=== PATIENT | male | born 1930 | race Hispanic/Latino ===

== ENCOUNTER 2018-10-29 23:09 | Inpatient (IN) | payer OTHER ==
[~2018-10-29] VITALS: Ht 165.1 cm; Wt 54.0 kg
[~2018-10-29 23:09] MED LIST: AMLODIPINE; ASPI-1197 PO; GLIP5TAB11 PO; LEVO25TA54 PO; LISI40TA4 PO; METF-446 PO; SIMV20TA6 PO
[2018-10-29 23:28] LABS: BASOPHILS % (AUTO) 0.2 % (0.0-5.0); EOSINOPHILS % (AUTO) 0.2 % (0.0-8.0); HEMATOCRIT 36.1 % (42-54); LYMPHOCYTES % (AUTO) 2.1 % (21.0-51.0); MEAN CORPUSCULAR HEMOGLOBIN 29.7 pg (27.0-33.0); MEAN CORPUSCULAR HGB CONC 31.5 g/dL (32.0-36.0); MEAN CORPUSCULAR VOLUME 94.4 fL (79-99); MONOCYTES % (AUTO) 3.4 % (3.0-13.0); NEUTROPHILS % (AUTO) 94.1 % (40.0-77.0); PLATELET COUNT (AUTO) 214 K/uL (130-400); RED BLOOD CELL COUNT(AUTO) 3.82 MIL/uL (4.50-6.20); RED CELL DISTRIBUTION WIDTH 17.3 % (11.0-15.5); WHITE BLOOD COUNT (AUTO) 7.3 K/uL (4.8-10.8)
[2018-10-29] MEDS ORDERED: LORAZEPAM 2 MG/ML 1 ML VIAL ONE (23:31)
[2018-10-29] MEDS ORDERED: SODIUM CHLORIDE 0.9% 1000ML 1,000 ML IV ONE ×2 (23:33→23:53)
[2018-10-29] MEDS ORDERED: ZOSYN 3.375GM+NS 50ML 50 ML IV ONE (23:33)
[2018-10-29] MEDS ORDERED: SODIUM CHLORIDE 0.9% 500ML 500 ML IV ONE (23:34)
[2018-10-29] MEDS ORDERED: FOSPHENYTOIN SODIUM 500 MG/10ML VIAL IJ ONE (23:36)
[2018-10-29 23:41] LABS: INR 0.94 (0.85-1.15); PARTIAL THROMBOPLASTIN TIME 27.8 SEC (26.3-35.5); PROTHROMBIN TIME 9.9 SEC (9.6-11.6)
[2018-10-29 23:46] LABS: APPEARANCE,URINE CLOUDY (CLEAR); BILIRUBIN,URINE SMALL (NEGATIVE); COLOR,URINE ORANGE (YELLOW); GLUCOSE, URINE (UA) >=1000 mg/dL (NEGATIVE); KETONES,URINE 5 mg/dL (NEGATIVE); LEUKOCYTE ESTERASE ,URINE MODERATE (NEGATIVE); NITRATE,URINE POSITIVE (NEGATIVE); OCCULT BLOOD,URINE LARGE (NEGATIVE); PH,URINE 8.5 (5.0-8.0); PROTEIN,URINE >=300 mg/dL (NEGATIVE)
[2018-10-29 23:50] LABS: ALBUMIN 2.4 g/dL (3.5-5.0); BILIRUBIN,TOTAL 0.5 mg/dL (0.2-1.0); CREATININE 3.7 mg/dL (0.5-1.5); POTASSIUM 4.4 mmol/L (3.5-5.1); TOTAL PROTEIN, SERUM 6.6 g/dL (6.0-8.3); TROPONIN I 0.06 ng/mL (0.00-0.06)
[2018-10-30] VITALS (23 sets, daily range): BP systolic 96–149; BP diastolic 39–89
[2018-10-30] MEDS ORDERED: NOREPINEPHRINE BITARTRATE 1 MG/1 ML ML IV ONE ×5 (00:02→14:14)
[2018-10-30] MEDS ORDERED: SODIUM CHLORIDE 0.9% 250 ML IV ONE ×4 (00:03→14:15)
[2018-10-30 00:06] LABS: BACTERIA,URINE Many /HPF (None Seen); RBC,URINE TNTC /HPF (0-1); WBC,URINE TNTC /HPF (0-1)
[2018-10-30] MEDS ORDERED: SODIUM CHLORIDE 0.9% 100 ML IV ONE (00:24)
[2018-10-30] MEDS ORDERED: INSULIN HUMULIN R 100 UNIT/ML 3ML ONE (00:27)
[2018-10-30 00:35] LABS: ABG BASE EXCESS -9.4 mmol/L (-2.0-3.0); ABG OXYGEN SATURATION 99.2 % (95.0-99.0); ABG PCO2 29 mmHg (35-48)
[2018-10-30] MEDS ORDERED: LEVOFLOXACIN 500 MG/D5W 100 ML 100 ML ONE (00:37)
[2018-10-30] MEDS ORDERED: DEXTROSE 5 %-0.45 % NACL 1,000 ML IV PRN (01:06)
[2018-10-30] MEDS ORDERED: SODIUM CHLORIDE 0.9% 1000ML 1,000 ML IV ONE ×2 (01:06→01:55)
[2018-10-30] MEDS: SODIUM CHLORIDE 0.9% 1000ML 1,000 ML IV SCH ×2 (01:06→06:06)
[2018-10-30] MEDS ORDERED: VANCOMYCIN 1GM+NS 250ML 250 ML IV ONE ×2 (01:15→02:25)
[2018-10-30] MEDS ORDERED: NOREPINEPHRINE 4MG/NS 250ML 250 ML IV SCH (01:15)
[2018-10-30] MEDS ORDERED: LORAZEPAM 2 MG/ML 1 ML VIAL IVP PRN (01:15)
[2018-10-30] MEDS ORDERED: INSULIN REGULAR, HUMAN 3ML 100 UNIT in SODIUM CHLORIDE 0.9% 99 ML IV PRN ×2 (01:15)
[2018-10-30 01:27] LABS: HEMOGLOBIN A1C 7.7 % (4.0-6.0)
[2018-10-30] MEDS ORDERED: SODIUM BICARB 50MEQ 50ML VIAL ONE (01:35)
[2018-10-30] MEDS ORDERED: PHARMACY COMMUNICATION MISC SCH (02:00)
[2018-10-30] MEDS ORDERED: VANCOMYCIN PROTOCOL PER PHARMACY IV SCH (02:00)
[2018-10-30 03:19] LABS: CREATININE 3.1 mg/dL (0.5-1.5); POTASSIUM 3.4 mmol/L (3.5-5.1)
[2018-10-30 03:26] LABS: TROPONIN I 0.08 ng/mL (0.00-0.06)
[2018-10-30 03:44] LABS: ABG BASE EXCESS -5.3 mmol/L (-2.0-3.0); ABG HCO3 18.8 mmol/L (21.0-28.0); ABG OXYGEN SATURATION 98.9 % (95.0-99.0); ABG PCO2 33 mmHg (35-48)
[2018-10-30 04:50] LABS: BASOPHILS % (AUTO) 0.3 % (0.0-5.0); EOSINOPHILS % (AUTO) 0.1 % (0.0-8.0); HEMATOCRIT 30.3 % (42-54); LYMPHOCYTES % (AUTO) 1.5 % (21.0-51.0); MEAN CORPUSCULAR HEMOGLOBIN 29.2 pg (27.0-33.0); MEAN CORPUSCULAR HGB CONC 32.1 g/dL (32.0-36.0); MONOCYTES % (AUTO) 0.5 % (3.0-13.0); NEUTROPHILS % (AUTO) 97.6 % (40.0-77.0); PLATELET COUNT (AUTO) 204 K/uL (130-400); RED BLOOD CELL COUNT(AUTO) 3.33 MIL/uL (4.50-6.20); RED CELL DISTRIBUTION WIDTH 17.2 % (11.0-15.5); WHITE BLOOD COUNT (AUTO) 7.2 K/uL (4.8-10.8)
[2018-10-30] MEDS ORDERED: ZOSYN 3.375GM+NS 50ML 50 ML IV SCH (05:00)
[2018-10-30 05:26] LABS: CREATININE 2.7 mg/dL (0.5-1.5); POTASSIUM 3.1 mmol/L (3.5-5.1)
[2018-10-30] MEDS ORDERED: POTASSIUM CHLORIDE 10MEQ/100ML 100 ML IV ONE ×2 (06:06→07:30)
[2018-10-30] MEDS ORDERED: DEXTROSE 5 %-0.45 % NACL 1,000 ML IV ONE ×2 (06:14→11:07)
[2018-10-30] MEDS ORDERED: FAMOTIDINE/PF 20 MG/2 ML VIAL IV ONE (08:10)
[2018-10-30] MEDS ORDERED: ZOSYN 3.375GM+NS 50ML 50 ML IV ONE (08:46)
[2018-10-30] MEDS: FAMOTIDINE/PF 20 MG/2 ML VIAL IV SCH ×2 (09:00→20:49)
--- NOTE | 2018-10-30 09:20 | NUR ---
CRITICAL LABS REPORTED TO JOSEPHINE MONTANO NP. NEW ORDERS RECEIVED OT BE CARRIED OUT. Addendum: 10/30/18 at 2254 by SHIRLEY SWANSON RN RN TIME REPORTED [id number]
[2018-10-30] MEDS: FOSPHENYTOIN SODIUM 100 MG in SODIUM CHLORIDE 0.9% 50 ML IV SCH ×2 (11:00→18:13)
[2018-10-30] MEDS ORDERED: FOSPHENYTOIN SODIUM 100 MG/2 ML VIAL IV SCH (11:00)
[2018-10-30] MEDS: ZOSYN 3.375GM+NS 50ML 50 ML IV SCH (12:00)
[2018-10-30] MEDS ORDERED: MORPHINE SULFATE 2 MG/ML 1ML SYG IM PRN (14:45)
[2018-10-30] MEDS ORDERED: THIAMINE HCL 100 MG/ML 2ML VIAL ONE (14:47)
[2018-10-30] MEDS ORDERED: SODIUM CHLORIDE 0.9% 50 ML IV ONE (14:47)
[2018-10-30 14:50] LABS: ABG HCO3 20.8 mmol/L (21.0-28.0); ABG OXYGEN SATURATION 97.4 % (95.0-99.0); ABG PCO2 34 mmHg (35-48)
--- NOTE | 2018-10-30 17:00 | NUR ---
ADMIT NOTE received from ED, report given by CARLOS Rae. Opens eyes to sound. Peripheral IVs patent. Montanez catheter to gravity, hematuria present. Family at bedside, updated on plan of care, verbalized understanding. Sinus rhythm in 90s.
[2018-10-30] MEDS: METOCLOPRAMIDE 10 MG/2 ML VIAL IVP SCH ×2 (17:41→23:37)
[2018-10-30] MEDS ORDERED: COMPOUND IV REFRIGERATED 1 EACH IVSOLN MISC PRN (18:00)
--- NOTE | 2018-10-30 18:15 | NUR ---
PICC PICC line nurse in for insertion of line, consent signed, tolerating well.
--- NOTE | 2018-10-30 19:30 | NUR ---
PT RECEIVED IN BED, ALERT TO SELF ONLY. FAMILY IS AT BEDSIDE. INSULIN DRIP DISCONTINUED AT 1900, PT CONT ON 02/22 NS D5W @ 150ML/HR. PICC LINE PLACEMENT COMPLETED, PENDING ORDER FOR USE. BILATERAL HAND MITTENS ON D/T PATIENT AT RISK OF PULLING OUTLINES. F/C NOTED WITH HEMATURIA, DRAINING TO GRAVITY, SECURED TO PATIENT. TELE WITH AFIB. INSTRUCTED FAMILY TO BRING IN HOME MEDICATIONS TO HAVE MD REVIEW.
[2018-10-30 20:47] LABS: POTASSIUM 3.1 mmol/L (3.5-5.1)
[2018-10-30] MEDS ORDERED: FAMOTIDINE/PF 20 MG/2 ML VIAL IV SCH (21:00)
[2018-10-30] MEDS ORDERED: FAMO20TA8 PO (21:38)
[2018-10-30] MEDS ORDERED: PHEN99.5 PO (21:38)
[2018-10-30] MEDS ORDERED: OLAN2.5T29 PO (21:38)
[2018-10-30] MEDS ORDERED: FERR-82 PO (21:38)
[2018-10-30] MEDS ORDERED: METO25TA6 PO (21:38)
--- NOTE | 2018-10-30 21:38 | NUR ---
HOME MEDICATIONS OBTAINED AND READY FOR MD REVIEW.
--- NOTE | 2018-10-30 21:40 | NUR ---
SPOKE WITH JALEESA DOWLING WITH [facility], CRITICAL LABS REPORTED. NEW ORDERS RECEIVED TO BE CARRIED OUT.
[2018-10-30] MEDS: DEXTROSE 5%-WATER 1,000 ML IV SCH (22:15)
[2018-10-30] MEDS ORDERED: DEXTROSE 5%-WATER 1,000 ML IV ONE (22:20)
[2018-10-30] MEDS: POTASSIUM CHLORIDE 10MEQ/100ML 100 ML IV PRN ×2 (22:37→23:36)
--- NOTE | 2018-10-30 22:50 | NUR ---
PICC LINE OKAY TO USE PER DR. VILLANUEVA.
[2018-10-30] MEDS ORDERED: INSULIN HUMULIN R 100 UNIT/ML 3ML SQ SCH (23:15)
[2018-10-31] VITALS (40 sets, daily range): BP systolic 95–154; BP diastolic 44–81
[2018-10-31] MEDS: POTASSIUM CHLORIDE 20 MEQ in DEXTROSE 5%-WATER 1,000 ML IV SCH (00:32)
[2018-10-31] MEDS: ZOSYN 3.375GM+NS 50ML 50 ML IV SCH ×3 (00:32→23:30)
[2018-10-31] MEDS: FOSPHENYTOIN SODIUM 100 MG in SODIUM CHLORIDE 0.9% 50 ML IV SCH ×3 (02:13→18:05)
[2018-10-31 03:39] LABS: BASOPHILS % (AUTO) 0.3 % (0.0-5.0); EOSINOPHILS % (AUTO) 0.4 % (0.0-8.0); HEMATOCRIT 29.7 % (42-54); LYMPHOCYTES % (AUTO) 5.5 % (21.0-51.0); MEAN CORPUSCULAR HEMOGLOBIN 29.8 pg (27.0-33.0); MEAN CORPUSCULAR HGB CONC 32.5 g/dL (32.0-36.0); MEAN CORPUSCULAR VOLUME 91.7 fL (79-99); NEUTROPHILS % (AUTO) 89.8 % (40.0-77.0); PLATELET COUNT (AUTO) 183 K/uL (130-400); RED BLOOD CELL COUNT(AUTO) 3.24 MIL/uL (4.50-6.20); RED CELL DISTRIBUTION WIDTH 17.1 % (11.0-15.5); WHITE BLOOD COUNT (AUTO) 12.1 K/uL (4.8-10.8)
[2018-10-31 04:00] LABS: ALBUMIN 1.7 g/dL (3.5-5.0); BILIRUBIN,TOTAL 0.4 mg/dL (0.2-1.0); CREATININE 1.8 mg/dL (0.5-1.5); MAGNESIUM 1.5 mg/dL (1.80-2.40); PHOSPHORUS 2.1 mg/dL (2.5-4.9); TOTAL PROTEIN, SERUM 5.1 g/dL (6.0-8.3)
[2018-10-31] MEDS ORDERED: POTASSIUM CHLORIDE 20 MEQ ERTAB PO PRN (04:15)
[2018-10-31] MEDS ORDERED: LIDOCAINE HCL-MPF 1% 2ML VIAL IV PRN ×2 (04:15→04:45)
--- NOTE | 2018-10-31 04:23 | NUR ---
CRITICAL LABS NA 163/ CHL 126/ K 3.0 AND MG 1.5 REPORTED TO JOSEPHINE MONTANO INSURANCE OFFICE MANAGER. NEW ORDERS RECEIVED TO BE CARRIED OUT.
[2018-10-31] MEDS ORDERED: MAGNESIUM 2GM PREMIX 50ML 50 ML IV ONE (04:36)
--- NOTE | 2018-10-31 05:11 | NUR ---
CRITICAL LEVEL NA 163 REPORTED TO JALEESA ASHTON, NO CHANGES AT THIS TIME.
[2018-10-31] MEDS: METOCLOPRAMIDE 10 MG/2 ML VIAL IVP SCH ×4 (06:07→23:30)
[2018-10-31] MEDS: INSULIN HUMULIN R 100 UNIT/ML 3ML SQ SCH ×3 (06:10→17:42)
[2018-10-31] MEDS: POTASSIUM CHLORIDE 20MEQ/100ML 100 ML IV PRN ×3 (06:39→18:20)
--- NOTE | 2018-10-31 07:00 | NUR ---
AM NOTE Arousable to sound, oriented to person only. Confused attempts to remove lines, bilateral hand mittens in place. D5W at 100 infusing via PICC line to right arm, dressing clean and dry. Peripheral IVs discontinued catheters intact upon removal. Seizure precautions in place. Head of bed elevated. Side rails up. Spouse at bedside.
[2018-10-31] MEDS: FAMOTIDINE/PF 20 MG/2 ML VIAL IV SCH ×2 (07:40→20:47)
[2018-10-31] MEDS: DEXTROSE 5%-WATER 1,000 ML IV SCH ×2 (07:40→17:41)
[2018-10-31] MEDS ORDERED: ENOXAPARIN SODIUM 30 MG/0.3 ML SQ SCH (09:00)
--- NOTE | 2018-10-31 09:30 | NUR ---
MD VISIT Dr. Clements in to see pt, update given. No new orders received.
[2018-10-31] MEDS ORDERED: VANCOMYCIN 750MG + NS 250 ML IV SCH ×2 (11:00)
--- NOTE | 2018-10-31 11:45 | NUR ---
DYSPHAGIA EVAL COMPLETED. +S/S OF ASPIRATION WITH THIN LIQUIDS. RECOMMEND PUREED, NECTAR-THICK LIQUIDS; PILLS CRUSHED WITH APPLESAUCE. RECOMMENDATIONS: 1.DYSPHAGIA THERAPY 3-5X WEEK TO INCREASE ORAL MOTOR STRENGTH AND PHARYNGEAL SWALLOW: LTG#1: Pt WILL TOLERATE LEAST RESTRICTIVE DIET TO MEET NUTRITION/HYDRATION WITH NO S/S OF ASPIRATION. LTG#2: SKILLED EDUCATION Pt/FAMILY/STAFF STG#1: Pt WILL PARTICIPATE IN LARYNGEAL ELEVATION/EXCURSION EXERCISES WITH 80% ACCURACY. STG#2: Pt WILL PARTICIPATE IN TONGUE BASE RETRACTION EXERCISES WITH 80% ACCURACY. STG#3: Pt WILL PARTICIPATE IN ORAL MOTOR EXERCISES WITH 80% ACCURACY. STG#4: Pt WILL TOLERATE PUREED, NECTAR-THICK LIQUIDS WITH NO OVERT S/S OF ASPIRATION. STG#5: PT WILL TOLERATE THERAPEUTIC TRIALS OF ADVANCED TEXTURE OF MECHANICAL SOFT AND THIN LIQUIDS WITH NO OVERT S/S OF ASPIRATION. STG#6: SKILLED EDUCATION Pt/FAMILY/STAFF. Addendum: 10/31/18 at 1453 by AVA MURGUIA [facility] Amended: Links added.
[2018-10-31 16:46] LABS: CREATININE 1.7 mg/dL (0.5-1.5); POTASSIUM 3.3 mmol/L (3.5-5.1)
--- NOTE | 2018-10-31 19:14 | NUR ---
DC PLAN VISITED WITH PATIENT. PATIENT LIVES WITH SPOUSE. USED TO BE INDEPENDENT. SINCE LAST ADMISSION IN WHICH HE FELL AT HOME HE HAS DECLINED. DEMENTIA HAS PROGRESSED. PATIENT MORE CONFUSED WITH MITTENS AT THIS TIME. PATIENT HAS NO DME AT HOME. LAST TIME WENT TO [facility]. SAID HE LIKED IT THERE. OKAY TO RETURN IF MD RECOMMENDS SAID THAT HE COULD USE SOME MORE THERAPY. Addendum: 10/31/18 at 1916 by APOLONIA CHAVIS RN CM Amended: Links added.
--- NOTE | 2018-10-31 19:15 | NUR ---
[facility] PLAN - HOSPICE SPOKE TO AND TO SON REGARDING [facility]. PATIENT HAS ADVANCED DEMENTIA WITH FAILURE TO THRIVE. MORE AND MORE CONFUSED. UNABLE TO CARE FOR SELF. WANTS HIM TO RETURN HOME. SAID WILL THINK ABOUT IT. Addendum: 10/31/18 at 1917 by APOLONIA CHAVIS RN CM Amended: Links added.
--- NOTE | 2018-10-31 22:30 | NUR ---
MD Visit making pt rounds ,updated with pt condition, new orders received. Will carry out.
[2018-10-31] MEDS: INSULIN GLARGINE 100 UNITS/ML 10 ML VIAL SQ SCH (23:32)
[2018-11-01] VITALS (16 sets, daily range): BP systolic 116–165; BP diastolic 49–99
--- NOTE | 2018-11-01 | NUR ---
Assessment Pt continues to have altered mental status, confusion, and attempts to remove lines, but mittens are in place. AOX2. As per MD orders infusing D5W with 20KCL 20Meq's as order @ 100ml/hr. No seizures, no distress and or shortness of breath noted during numerous visits to patients room. Seizure pads and seizure precautions in place. Head of bed elevated. Side rails up. Spouse at bedside and call light with in reach.
[2018-11-01] MEDS: INSULIN HUMULIN R 100 UNIT/ML 3ML SQ SCH ×4 (00:03→16:10)
[2018-11-01] MEDS ORDERED: DEXTROSE 5%-WATER 1,000 ML IV ONE (00:16)
[2018-11-01] MEDS: POTASSIUM CHLORIDE 20MEQ/100ML 100 ML IV PRN ×3 (00:31→11:58)
[2018-11-01] MEDS: FOSPHENYTOIN SODIUM 100 MG in SODIUM CHLORIDE 0.9% 50 ML IV SCH ×3 (02:41→18:24)
[2018-11-01 04:30] LABS: ALBUMIN 1.8 g/dL (3.5-5.0); BILIRUBIN,TOTAL 0.4 mg/dL (0.2-1.0); CREATININE 1.8 mg/dL (0.5-1.5); MAGNESIUM 1.8 mg/dL (1.80-2.40); PHOSPHORUS 1.9 mg/dL (2.5-4.9); POTASSIUM 3.1 mmol/L (3.5-5.1); THYROID STIMULATING HORMONE 4.26 uIU/mL (0.36-3.74); TOTAL PROTEIN, SERUM 5.3 g/dL (6.0-8.3)
[2018-11-01 04:57] LABS: BASOPHILS % (AUTO) 0.2 % (0.0-5.0); EOSINOPHILS % (AUTO) 1.7 % (0.0-8.0); LYMPHOCYTES % (AUTO) 6.4 % (21.0-51.0); MEAN CORPUSCULAR HEMOGLOBIN 29.9 pg (27.0-33.0); MEAN CORPUSCULAR HGB CONC 32.5 g/dL (32.0-36.0); MEAN CORPUSCULAR VOLUME 91.8 fL (79-99); MONOCYTES % (AUTO) 4.2 % (3.0-13.0); NEUTROPHILS % (AUTO) 87.5 % (40.0-77.0); PLATELET COUNT (AUTO) 198 K/uL (130-400); RED BLOOD CELL COUNT(AUTO) 3.26 MIL/uL (4.50-6.20); RED CELL DISTRIBUTION WIDTH 17.1 % (11.0-15.5); WHITE BLOOD COUNT (AUTO) 9.9 K/uL (4.8-10.8)
[2018-11-01] MEDS: METOCLOPRAMIDE 10 MG/2 ML VIAL IVP SCH ×2 (06:05→11:58)
[2018-11-01] MEDS: INSULIN GLARGINE 100 UNITS/ML 10 ML VIAL SQ SCH ×2 (06:36→21:08)
[2018-11-01] MEDS: FAMOTIDINE/PF 20 MG/2 ML VIAL IV SCH ×2 (08:27→21:06)
[2018-11-01] MEDS: MAGNESIUM 2GM PREMIX 50ML 50 ML IV PRN (08:43)
--- NOTE | 2018-11-01 08:45 | NUR ---
ORAL CARE COMPLETED, LARGE AMOUNT OF DRY SECRETIONS NOTED. REPOSITIONED PT FOR COMFORT, OPENS EYES AT TIMES AND THEN GOES BACK TO SLEEP. WILL HOLD OFF ON FEEDING FOR NOW. INFORMED SPOUSE AT BEDSIDE. VERBALIZED UNDERSTANDING.
--- NOTE | 2018-11-01 11:08 | NUR ---
EDUCATION PROVIDED. Pt SLEEPING AND NOT ABLE TO PARTICIPATE IN THERAPEUTIC P.O. TRIALS AT THIS TIME. PRESENT AT BEDSIDE AT THE TIME OF floor mechanic VISIT. SERVICE TEAM LEADER EDUCATED ON RISKS AND CONSEQUENCES OF ASPIRATION, RECOMMENDATIONS AND HOW TO USE THICKENING AGENT. VERBALIZED UNDERSTANDING AND COMPLIANCE WITH RECOMMENDATIONS. ALL QUESTIONS AND ANSWERED AT THIS TIME. SERVICE TEAM LEADER INSTRUCTED TO ONLY PROVIDE P.O. WHEN Pt WAS ALERT AND FOLLOWING COMMANDS TO PARTICIPATE IN EATING. SHE VERBALIZED AGREEMENT. Addendum: 11/01/18 at 1111 by AVA MURGUIA [facility] Amended: Links added.
[2018-11-01] MEDS: ZOSYN 3.375GM+NS 50ML 50 ML IV SCH (11:58)
--- NOTE | 2018-11-01 12:04 | NUR ---
REMOVED MITTENS AT THIS TIME. FAMILY MEMBERS AT BEDSIDE. WILL CONTINUE TO MONITOR.
[2018-11-01] MEDS: POTASSIUM CHLORIDE 20 MEQ in DEXTROSE 5%-WATER 1,000 ML IV SCH (12:43)
--- NOTE | 2018-11-01 13:15 | NUR ---
DR. PRASAD ROUNDED, UPDATES GIVEN. MED-TELE ORDER RECEIVED.
--- NOTE | 2018-11-01 14:08 | NUR ---
ORDERS FOR PCCU BY DR. PRASAD.
[2018-11-01] MEDS ORDERED: PHARMACY COMMUNICATION MISC SCH (15:15)
[2018-11-01] MEDS ORDERED: RENAL DOSE IV PRN (15:15)
--- NOTE | 2018-11-01 16:00 | NUR ---
NOTED REDNESS TO COCCYX AREA UPON TURNING PT IN BED. APPLIED ALLEVYN FOAM PATCH AND WILL CONTINUE TO MONITOR.
[2018-11-01] MEDS: CEFAZOLIN SODIUM 1 GM VIAL IVP SCH (16:45)
[2018-11-01] MEDS ORDERED: LEVOFLOXACIN 250 MG/D5W 50ML 50 ML IV SCH (17:00)
[2018-11-01] MEDS ORDERED: LORAZEPAM 2 MG/ML 1 ML VIAL IVP PRN (17:15)
[2018-11-01] MEDS: DEXTROSE 5%-WATER 1,000 ML IV SCH (18:24)
[2018-11-02] MEDS: INSULIN HUMULIN R 100 UNIT/ML 3ML SQ SCH ×3 (00:07→13:33)
[2018-11-02] MEDS: DEXTROSE 5%-WATER 1,000 ML IV SCH ×2 (02:30→22:38)
[2018-11-02] MEDS: FOSPHENYTOIN SODIUM 100 MG in SODIUM CHLORIDE 0.9% 50 ML IV SCH ×3 (02:30→22:41)
--- NOTE | 2018-11-02 02:52 | NUR ---
TRANSFER PATIENT TRANSFERRED TO ROOM 231 VIA BED WITH SPOUSE AT BEDSIDE. TRANSFERRED TO TELE BED WITH ASSISTANCE X4. PATIENT REMAINS NON VERBAL. AWAKENS TO TACTILE STIMULI. BREATHING REGULAR AND UNLABORED ON ROOM AIR. KASPER DRAINING. URINE WITH CLOTS. D5W RUNNING TO [facility]. REPORT GIVEN TO CARLOS OROSCO. CARE ENDORSED
[2018-11-02 03:48] LABS: BASOPHILS % (AUTO) 0.6 % (0.0-5.0); EOSINOPHILS % (AUTO) 5.8 % (0.0-8.0); HEMATOCRIT 31.5 % (42-54); LYMPHOCYTES % (AUTO) 8.1 % (21.0-51.0); MEAN CORPUSCULAR HEMOGLOBIN 29.7 pg (27.0-33.0); MEAN CORPUSCULAR HGB CONC 32.6 g/dL (32.0-36.0); MEAN CORPUSCULAR VOLUME 91.2 fL (79-99); MONOCYTES % (AUTO) 5.2 % (3.0-13.0); NEUTROPHILS % (AUTO) 80.3 % (40.0-77.0); PLATELET COUNT (AUTO) 194 K/uL (130-400); RED BLOOD CELL COUNT(AUTO) 3.45 MIL/uL (4.50-6.20); WHITE BLOOD COUNT (AUTO) 9.4 K/uL (4.8-10.8)
[2018-11-02 04:20] LABS: ALBUMIN 1.8 g/dL (3.5-5.0); BILIRUBIN,TOTAL 0.4 mg/dL (0.2-1.0); CREATININE 1.5 mg/dL (0.5-1.5); MAGNESIUM 2.4 mg/dL (1.80-2.40); PHENYTOIN (DILANTIN) 18.1 mcg/mL (10.0-20.0); PHOSPHORUS 2.7 mg/dL (2.5-4.9); THYROID STIMULATING HORMONE 5.14 uIU/mL (0.36-3.74); TOTAL PROTEIN, SERUM 5.2 g/dL (6.0-8.3)
[2018-11-02 04:22] LABS: POTASSIUM 2.9 mmol/L (3.5-5.1)
[2018-11-02] MEDS: POTASSIUM CHLORIDE 20MEQ/100ML 100 ML IV PRN (04:46)
[2018-11-02] MEDS: CEFAZOLIN SODIUM 1 GM VIAL IVP SCH ×3 (04:46→21:36)
[2018-11-02 04:54] VITALS: BP 113/52
[2018-11-02] MEDS ORDERED: DEXTROSE 50%-WATER 50 ML DISP.SYRIN IV ONE (05:42)
[2018-11-02] MEDS ORDERED: DEXTROSE 5 %-0.45 % NACL 1,000 ML IV ONE (05:58)
[2018-11-02] MEDS ORDERED: DEXTROSE 50%-WATER 25 GM/50 ML VIAL IV SCH (06:00)
[2018-11-02] MEDS: DEXTROSE 5 %-0.45 % NACL 1,000 ML IV SCH ×2 (06:07→15:03)
[2018-11-02] MEDS: INSULIN GLARGINE 100 UNITS/ML 10 ML VIAL SQ SCH (07:09)
[2018-11-02 08:03] VITALS: BP 158/67
[2018-11-02] MEDS: ENOXAPARIN SODIUM 30 MG/0.3 ML SQ SCH (09:38)
[2018-11-02] MEDS: FAMOTIDINE/PF 20 MG/2 ML VIAL IV SCH ×2 (09:38→21:37)
[2018-11-02] MEDS: LEVOFLOXACIN 250 MG/D5W 50ML 50 ML IV SCH (10:00)
[2018-11-02 12:02] VITALS: BP_SYST 143; BP_DIAS 68; BP_DIAS 77
--- NOTE | 2018-11-02 12:02 | NUR ---
DC Plan Discussed dcp with PMD. States will need IV ABX for a total of 14 days and PT. Discussed dcp with patient and family at bedside. Patient unable to participate in dc planning. at bedside states patient has been at [facility] in the past and would like for patient to return. signed CONRAD and Choice Letter for [facility]. Referral faxed and Yanet mukherjee/ [facility] Lissette notified. Notified Juan PT, that dcp is to SNF and CM will need PT notes documented. CM to f/u and fax PT notes and [facility]. CD Addendum: 11/02/18 at 1206 by ANA ALTAMIRANO CM Amended: Links added.
--- NOTE | 2018-11-02 12:54 | NUR ---
HOLD Pt SLEEPING AT THIS TIME. NO P.O. PROVIDED AT THIS TIME. PLEATING SUPERVISOR TO FOLLOW UP WITH PT. Addendum: 11/02/18 at 1255 by AVA MURGUIA, SPT ST Amended: Links added.
[2018-11-02] MEDS: NEUTRA-PHOS PACKET 1 EACH PO SCH ×2 (13:39→21:39)
[2018-11-02] MEDS ORDERED: LORAZEPAM 2 MG/ML 1 ML VIAL IVP PRN (15:15)
[2018-11-02 15:30] VITALS: BP 109/81
[2018-11-02] MEDS ORDERED: IPRATROPIUM/ALBUTEROL SULFATE 3 ML SOLUTION IH SCH (18:00)
[2018-11-02] MEDS ORDERED: FUROSEMIDE 10 MG/ML 4ML VIAL IV SCH (19:05)
[2018-11-02 19:40] VITALS: BP 132/84
[2018-11-02] MEDS ORDERED: INSULIN GLARGINE 100 UNITS/ML 10 ML VIAL SQ SCH (21:30)
[2018-11-03] VITALS: BP 129/72
[2018-11-03 03:57] VITALS: BP 159/55
[2018-11-03 04:01] LABS: HEMATOCRIT 32.8 % (42-54); MEAN CORPUSCULAR HEMOGLOBIN 29.6 pg (27.0-33.0); MEAN CORPUSCULAR HGB CONC 32.6 g/dL (32.0-36.0); MEAN CORPUSCULAR VOLUME 90.6 fL (79-99); PLATELET COUNT (AUTO) 243 K/uL (130-400); RED BLOOD CELL COUNT(AUTO) 3.62 MIL/uL (4.50-6.20); RED CELL DISTRIBUTION WIDTH 16.8 % (11.0-15.5); WHITE BLOOD COUNT (AUTO) 10.4 K/uL (4.8-10.8)
[2018-11-03 04:24] LABS: CREATININE 1.3 mg/dL (0.5-1.5); MAGNESIUM 1.3 mg/dL (1.80-2.40); PHOSPHORUS 2.2 mg/dL (2.5-4.9)
[2018-11-03 04:38] LABS: POTASSIUM 2.6 mmol/L (3.5-5.1)
[2018-11-03] MEDS ORDERED: DEXTROSE 50%-WATER 50 ML DISP.SYRIN IV ONE ×2 (04:42→11:30)
[2018-11-03] MEDS: DEXTROSE 50%-WATER 25 GM/50 ML VIAL IV SCH (05:00)
[2018-11-03] MEDS: INSULIN HUMULIN R 100 UNIT/ML 3ML SQ SCH ×4 (05:37→16:30)
[2018-11-03] MEDS: FOSPHENYTOIN SODIUM 100 MG in SODIUM CHLORIDE 0.9% 50 ML IV SCH ×3 (06:25→22:49)
[2018-11-03] MEDS: POTASSIUM CHLORIDE 20MEQ/100ML 100 ML IV PRN ×3 (06:32→22:48)
[2018-11-03 07:51] VITALS: BP 141/76
[2018-11-03] MEDS: CEFAZOLIN SODIUM 1 GM VIAL IVP SCH ×2 (10:28→22:48)
[2018-11-03] MEDS: NEUTRA-PHOS PACKET 1 EACH PO SCH (10:29)
[2018-11-03] MEDS: FAMOTIDINE/PF 20 MG/2 ML VIAL IV SCH ×2 (10:29→22:48)
[2018-11-03] MEDS: MEGESTROL 400 MG/10 ML UDCUP PO SCH (10:29)
[2018-11-03] MEDS: LEVOFLOXACIN 250 MG/D5W 50ML 50 ML IV SCH (10:30)
[2018-11-03] MEDS: ENOXAPARIN SODIUM 30 MG/0.3 ML SQ SCH (10:30)
[2018-11-03 11:00] VITALS: BP 111/58
--- NOTE | 2018-11-03 12:00 | NUR ---
cm note received update from Yanet goodman that pt accepted, updated pt's family and also updated Dr Nunez, and also of pt family questions regarding plan of care, Md will asses pt and make decision regarding transfer. updated primary nurse Alysa.
--- NOTE | 2018-11-03 14:01 | NUR ---
HOLD PT NOT ABLE TO PARTICIPATE IN THERAPEUTIC INTERVENTION SECONDARY TO DECREASED ALERTNESS. RECOMMEND ALTERNATE MEANS OF NUTRITION/HYDRATION AT THIS TIME. ASSISTANT DIRECTOR OF PUBLIC WORKS COORDINATED CARE WITH NURSE YI. ASSISTANT DIRECTOR OF PUBLIC WORKS WILL CONTINUE TO FOLLOW Pt. Addendum: 11/03/18 at 1402 by AVA MURGUIA, SPT ST Amended: Links added.
[2018-11-03] MEDS ORDERED: DEXTROSE 50%-WATER 50 ML DISP.SYRIN IV PRN (15:45)
[2018-11-03] MEDS ORDERED: GLUCAGON 1MG KIT 1 MG ML IM PRN (15:45)
[2018-11-03] MEDS: MAGNESIUM 2GM PREMIX 50ML 50 ML IV PRN (15:55)
[2018-11-03] MEDS: DEXTROSE 5%-WATER 1,000 ML IV SCH (15:56)
[2018-11-03 16:00] VITALS: BP 130/67
[2018-11-03 20:48] VITALS: BP 158/84
[2018-11-04] VITALS (7 sets, daily range): BP systolic 105–158; BP diastolic 54–67
[2018-11-04] MEDS: INSULIN HUMULIN R 100 UNIT/ML 3ML SQ SCH ×5 (01:57→22:49)
[2018-11-04] MEDS: DEXTROSE 5%-WATER 1,000 ML IV SCH ×2 (01:59→13:19)
[2018-11-04 04:19] LABS: HEMATOCRIT 40.5 % (42-54); MEAN CORPUSCULAR HEMOGLOBIN 36.3 pg (27.0-33.0); MEAN CORPUSCULAR HGB CONC 34.8 g/dL (32.0-36.0); MEAN CORPUSCULAR VOLUME 104.5 fL (79-99); PLATELET COUNT (AUTO) 150 K/uL (130-400); RED BLOOD CELL COUNT(AUTO) 3.87 MIL/uL (4.50-6.20); WHITE BLOOD COUNT (AUTO) 5.5 K/uL (4.8-10.8)
[2018-11-04 04:32] LABS: CREATININE 0.7 mg/dL (0.5-1.5); MAGNESIUM 1.8 mg/dL (1.80-2.40); PHOSPHORUS 3.3 mg/dL (2.5-4.9); POTASSIUM 3.7 mmol/L (3.5-5.1)
[2018-11-04 04:37] LABS: BASOPHILS % (MANUAL) 1 % (0-2); EOSINOPHILS % (MANUAL) 1 % (1-6); LYMPHOCYTES % (MANUAL) 28 % (22-44); MAN.DIFF COMMENT-IMPRESSION MANUAL DIFFERENTIAL; MONOCYTES % (MANUAL) 6 % (2-9); SEGMENTED NEUTROPHILS % 64 % (40-70)
[2018-11-04] MEDS: DEXTROSE 50%-WATER 25 GM/50 ML VIAL IV SCH (05:00)
[2018-11-04] MEDS: FOSPHENYTOIN SODIUM 100 MG in SODIUM CHLORIDE 0.9% 50 ML IV SCH ×3 (05:59→20:48)
[2018-11-04] MEDS: FAMOTIDINE/PF 20 MG/2 ML VIAL IV SCH ×2 (07:39→20:47)
[2018-11-04] MEDS: CEFAZOLIN SODIUM 1 GM VIAL IVP SCH ×2 (07:39→20:47)
[2018-11-04] MEDS: MEGESTROL 400 MG/10 ML UDCUP PO SCH (07:40)
[2018-11-04] MEDS: LEVOFLOXACIN 250 MG/D5W 50ML 50 ML IV SCH (07:40)
[2018-11-04] MEDS: ENOXAPARIN SODIUM 30 MG/0.3 ML SQ SCH (07:40)
--- NOTE | 2018-11-04 08:15 | NUR ---
ASSESSMENT PT IS RESTING IN BED, BREATHING PATTERN IS EVEN AND UNLABORED. FAMILY IS AT BEDSIDE. PATIENT RESTING WITH HOB UP AT 35 DEGREES, NO VISIBLE SINGS OF DISTRESS NOTED. FAMILY IS ASSISTING WITH BREAKFAST, NO CHOKING NO GAGGING NOTED AT THIS TIME. BED ALARM ON, CALL LIGHT WITHIN REACH.
--- NOTE | 2018-11-04 13:00 | NUR ---
MD ROUNDS DR ARIZA AND DR KHAN ROUNDED, SAW PATIENT, ORDERS RECEIVED.
[2018-11-04 13:41] LABS: CREATININE 1.4 mg/dL (0.5-1.5); POTASSIUM 3.6 mmol/L (3.5-5.1)
[2018-11-04 13:54] LABS: TROPONIN I 0.05 ng/mL (0.00-0.06)
--- NOTE | 2018-11-04 19:31 | NUR ---
INITIAL ASSESSMENT PATIENT IS RESTING IN BED. ALERT AND ORIENTED TO SELF. IS AT BEDSIDE. NO SIGNS OR COMPLAINTS OF PAIN. NO SIGNS OF DISTRESS. NO SHORTNESS OF BREATH. PATIENT HAS A KASPER THAT IS PATENT AND FREE FLOW DRAINING AT BEDSIDE. CALL LIGHT IS WITHIN REACH. REINFORCED TO TO CALL FOR ANY NEEDS. BED ALARM IS ONE AT THIS TIME.
--- NOTE | 2018-11-05 | NUR ---
ASSESSMENT PATIENT IS RESTING IN BED. CONFUSED BUT AROUSABLE. PATIENTS IS AT BEDSIDE. NO SIGNS OF DISTRESS. NO COMPLAINTS OF PAIN. NO SHORTNESS OF BREATH AT THIS TIME. PATIENT WAS REPOSITIONED. KASPER IN PLACE THAT IS AT BEDSIDE PATENT AND FREEFLOWING. NO QUESTIONS, CONCERNS, OR NEEDS AT THIS TIME.
[2018-11-05 03:00] VITALS: BP 143/60
--- NOTE | 2018-11-05 04:00 | NUR ---
ASSESSMENT PATIENT IS RESTING IN BED. NO SIGNS OF DISTRESS. NO COMPLAINTS OF PAIN. NO SHORTNESS OF BREATH. PATIENTS IS AT BEDSIDE. NO QUESTIONS, CONCERNS, AND NEEDS AT THIS TIME. PATIENTS CALL LIGHT IS WITHIN REACH ALTHOUGH CAN NOT PROPERLY DEMONSTRATE PROPER USE.
[2018-11-05] MEDS: FOSPHENYTOIN SODIUM 100 MG in SODIUM CHLORIDE 0.9% 50 ML IV SCH ×3 (05:43→21:38)
[2018-11-05 05:55] LABS: MEAN CORPUSCULAR HGB CONC 32.6 g/dL (32.0-36.0); MEAN CORPUSCULAR VOLUME 89.1 fL (79-99); PLATELET COUNT (AUTO) 223 K/uL (130-400); RED BLOOD CELL COUNT(AUTO) 3.14 MIL/uL (4.50-6.20); RED CELL DISTRIBUTION WIDTH 16.1 % (11.0-15.5); WHITE BLOOD COUNT (AUTO) 8.2 K/uL (4.8-10.8)
[2018-11-05 06:17] LABS: CREATININE 1.5 mg/dL (0.5-1.5)
[2018-11-05] MEDS: POTASSIUM CHLORIDE 20MEQ/100ML 100 ML IV PRN ×2 (06:51→20:28)
[2018-11-05 07:20] VITALS: BP 125/55
[2018-11-05] MEDS: INSULIN HUMULIN R 100 UNIT/ML 3ML SQ SCH ×4 (07:30→21:15)
[2018-11-05] MEDS: DEXTROSE 50%-WATER 25 GM/50 ML VIAL IV SCH (08:51)
[2018-11-05] MEDS: LEVOFLOXACIN 250 MG/D5W 50ML 50 ML IV SCH (09:59)
[2018-11-05] MEDS: DEXTROSE 5%-WATER 1,000 ML IV SCH (09:59)
[2018-11-05] MEDS: MEGESTROL 400 MG/10 ML UDCUP PO SCH (10:00)
[2018-11-05] MEDS: FAMOTIDINE/PF 20 MG/2 ML VIAL IV SCH ×2 (10:00→20:27)
[2018-11-05] MEDS: ENOXAPARIN SODIUM 30 MG/0.3 ML SQ SCH (10:00)
[2018-11-05] MEDS: CEFAZOLIN SODIUM 1 GM VIAL IVP SCH ×2 (10:00→20:27)
[2018-11-05] MEDS ORDERED: DICYCLOMINE HCL 20 MG TAB PO PRN (11:00)
[2018-11-05] MEDS ORDERED: ONDANSETRON HCL 4 MG/2 ML VIAL IVP PRN (11:00)
[2018-11-05 11:15] VITALS: BP 133/62
[2018-11-05 15:20] VITALS: BP 109/58
[2018-11-05 19:22] VITALS: BP 114/57
[2018-11-05] MEDS: DOCUSATE NA 100MG/10ML UDCUP PO SCH (20:27)
--- NOTE | 2018-11-05 20:30 | NUR ---
MEDS SHIFT ASSESSMENT DONE, PLEASE REFER TO CHART. DUE MEDS ADMINISTERED, TOLERATED WELL. RE-POSITIONED IN BED WITH HOB ELEVATED. KEPT ON NECTAR THICK LIQUIDS. KEPT COMFORTABLE IN BED. FAMILY AT BEDSIDE. WILL MONITOR PT. Addendum: 11/06/18 at 0053 by DARIA THOMAS RN RN Amended: Links added.
--- NOTE | 2018-11-05 23:30 | NUR ---
COUGH PT'S FAMILY CALLS AND CLAIMS THAT PT IS HAVING A LOT OF PHLEGM ON HIS THROAT AND WAS UNABLE TO EXPECTORATE. WENT TO CHECK ON PT AND BREATH SOUNDS ARE CLEAR BUT UNABLE TO CLEAR HIS THROAT. RT CALLED AND ASKED TO RE-ASSESS PT FOR SUCTIONING.
[2018-11-05 23:37] VITALS: BP 130/69
--- NOTE | 2018-11-06 02:00 | NUR ---
ROUNDS PT FAIRLY ASLEEP WITH RESPIRATIONS EVEN AND UNLABORED. NO NOTED DISTRESS. KEPT UNDISTURBED FOR NOW. CALL LIGHT WITHIN REACH. WILL MONITOR PT. FAMILY ASLEEP AT BEDSIDE.
[2018-11-06 03:26] VITALS: BP 133/67
[2018-11-06 04:30] LABS: HEMATOCRIT 27.2 % (42-54); MEAN CORPUSCULAR HEMOGLOBIN 29.4 pg (27.0-33.0); MEAN CORPUSCULAR HGB CONC 32.4 g/dL (32.0-36.0); MEAN CORPUSCULAR VOLUME 90.9 fL (79-99); PLATELET COUNT (AUTO) 244 K/uL (130-400); RED BLOOD CELL COUNT(AUTO) 2.99 MIL/uL (4.50-6.20); RED CELL DISTRIBUTION WIDTH 16.8 % (11.0-15.5); WHITE BLOOD COUNT (AUTO) 7.8 K/uL (4.8-10.8)
[2018-11-06 04:42] LABS: CREATININE 1.3 mg/dL (0.5-1.5); MAGNESIUM 1.3 mg/dL (1.80-2.40); PHOSPHORUS 2.5 mg/dL (2.5-4.9); POTASSIUM 3.6 mmol/L (3.5-5.1)
[2018-11-06] MEDS: MAGNESIUM 2GM PREMIX 50ML 50 ML IV PRN (05:14)
[2018-11-06] MEDS: POTASSIUM CHLORIDE 20MEQ/100ML 100 ML IV PRN (05:15)
[2018-11-06] MEDS: FOSPHENYTOIN SODIUM 100 MG in SODIUM CHLORIDE 0.9% 50 ML IV SCH ×3 (05:15→22:21)
--- NOTE | 2018-11-06 05:15 | NUR ---
MEDS PT STILL FAIRLY ASLEEP. NO DISTRESS NOTED. DUE IV MEDS HUNG AND INITIATED MG+ AND KCL PROTOCOL MG=1.3 AND KCL=3.6. FOR MORE CARE.
[2018-11-06] MEDS: DEXTROSE 5%-WATER 1,000 ML IV SCH (05:29)
[2018-11-06] MEDS: INSULIN HUMULIN R 100 UNIT/ML 3ML SQ SCH ×4 (06:06→21:55)
[2018-11-06 08:00] VITALS: BP 127/73
--- NOTE | 2018-11-06 09:30 | NUR ---
DYSPHAGIA TREATMENT COMPLETED. S: Pt SEATED IN BED AND REPOSITIONED BY DIRECTOR OF HUMAN RESOURCES AND NURSE TO 90 DEGREES IN BED. Pt COOPERATIVE WITH AT BEDSIDE. REPORTS PT HAS BEEN EATING WELL OVER THE WEEKEND. BREAKFAST TRAY AT BEDSIDE WITH 100% INTAKE. O: Pt CURRENTLY TARGETING SWALLOWING GOALS. RESULTS ARE FOLLOWS: STG#4: Pt WILL TOLERATE PUREED, NECTAR-THICK LIQUIDS WITH NO OVERT S/S OF ASPIRATION: THERAPEUTIC TRIALS X10 PROVIDED WITH NO OVERT S/S OF ASPIRATION. Pt WITH PHARYNGEAL SWALLOW PALPATED AND PRESENT. MILD PHARYNGEAL DELAY NOTED. Pt TOLERATING CURRENT DIET. STG#5: PT WILL TOLERATE THERAPEUTIC TRIALS OF ADVANCED TEXTURE OF MECHANICAL SOFT AND THIN LIQUIDS WITH NO OVERT S/S OF ASPIRATION: Pt PROVIDED WITH 5 TRIALS OF MIXED TEXTURE, Pt WITH IMPROVED MASTICATION AND ACTIVITY TOLERANCE. Pt WITH INCREASED MASTICATION TIME NOTED WITH RESIDUE IN TONGUE BODY AND ROOF OF THE MOUTH. Pt WITH COUGH RESPONSE IN 2/5 TRIALS. STG#6: SKILLED EDUCATION Pt/FAMILY/STAFF: COMPLETED WITH , SHE VERBALIZED UNDERSTANDING AND DEMONSTRATED COMPLIANCE WITH THICKENED LIQUIDS AT BEDSIDE. A: Pt WITH IMPROVED P.O. INTAKE AT THIS TIME. Pt TOLERATING PUREED, NECTAR-THICK LIQUID DIET. P: RECOMMEND CONTINUED PUREED, NECTAR-THICK LIQUIDS AT THIS TIME. Pt WITH TOLERANCE AND IMPROVED COOPERATION DURING MEAL TIMES. RECOMMEND CONTINUED SKILLED SPEECH THERAPY TOLERATED BY Pt. DIRECTOR OF HUMAN RESOURCES COORDINATED CARE WITH NURSE DO. Addendum: 11/06/18 at 1102 by AVA MURGUIA, SPT ST Amended: Links added.
[2018-11-06] MEDS: FAMOTIDINE/PF 20 MG/2 ML VIAL IV SCH ×2 (10:05→21:10)
[2018-11-06] MEDS: ENOXAPARIN SODIUM 30 MG/0.3 ML SQ SCH (10:05)
[2018-11-06] MEDS: DOCUSATE NA 100MG/10ML UDCUP PO SCH ×2 (10:05→21:10)
[2018-11-06] MEDS: MEGESTROL 400 MG/10 ML UDCUP PO SCH ×3 (10:05→21:13)
[2018-11-06] MEDS: CEFAZOLIN SODIUM 1 GM VIAL IVP SCH ×2 (10:05→21:10)
[2018-11-06] MEDS: LEVOFLOXACIN 250 MG/D5W 50ML 50 ML IV SCH (10:10)
[2018-11-06 12:21] VITALS: BP 115/63
--- NOTE | 2018-11-06 13:57 | NUR ---
cm note spoke to leonardo from [facility] and states pt can got [facility] today. if doesnt go today will need re authorization. updated primary md.
--- NOTE | 2018-11-06 14:10 | NUR ---
[facility] consult Patient assessed as ordered. Patient with stage II pressure ulcer to coccyx. [facility] recommendations submitted. Teaching done with patient and spouse re: turning/repositioning every 2 hours/prn. Both verbalized understanding. Addendum: 11/06/18 at 1445 by OSMAN DUTTA RN/ Amended: Links added.
[2018-11-06 15:42] VITALS: BP 143/61
[2018-11-06] MEDS: HONEY 1 APPL/ML TUBE TP SCH ×2 (16:00→21:11)
[2018-11-06 20:00] VITALS: BP 116/52
[2018-11-06] MEDS ORDERED: HONEY 1 APPL/ML TUBE TP SCH (21:00)
[2018-11-06 23:46] VITALS: BP 129/70
[2018-11-07] MEDS: DEXTROSE 5%-WATER 1,000 ML IV SCH (01:28)
[2018-11-07 03:47] LABS: BASOPHILS % (AUTO) 0.3 % (0.0-5.0); EOSINOPHILS % (AUTO) 3.1 % (0.0-8.0); HEMATOCRIT 26.8 % (42-54); LYMPHOCYTES % (AUTO) 12.1 % (21.0-51.0); MEAN CORPUSCULAR HGB CONC 32.4 g/dL (32.0-36.0); MEAN CORPUSCULAR VOLUME 89.6 fL (79-99); MONOCYTES % (AUTO) 6.9 % (3.0-13.0); NEUTROPHILS % (AUTO) 77.6 % (40.0-77.0); NUCLEATED RED BLOOD CELLS 0.1 % (0.0-0.19); PLATELET COUNT (AUTO) 282 K/uL (130-400); RED BLOOD CELL COUNT(AUTO) 2.99 MIL/uL (4.50-6.20); RED CELL DISTRIBUTION WIDTH 16.6 % (11.0-15.5); WHITE BLOOD COUNT (AUTO) 6.9 K/uL (4.8-10.8)
[2018-11-07 04:04] VITALS: BP 146/68
[2018-11-07 04:11] LABS: ALBUMIN 1.7 g/dL (3.5-5.0); BILIRUBIN,TOTAL 0.3 mg/dL (0.2-1.0); CREATININE 1.3 mg/dL (0.5-1.5); TOTAL PROTEIN, SERUM 4.8 g/dL (6.0-8.3)
[2018-11-07] MEDS: DEXTROSE 50%-WATER 25 GM/50 ML VIAL IV SCH (05:00)
[2018-11-07] MEDS: FOSPHENYTOIN SODIUM 100 MG in SODIUM CHLORIDE 0.9% 50 ML IV SCH ×2 (05:14→12:55)
[2018-11-07] MEDS: POTASSIUM CHLORIDE 20MEQ/100ML 100 ML IV PRN ×2 (05:45→08:26)
[2018-11-07] MEDS: INSULIN HUMULIN R 100 UNIT/ML 3ML SQ SCH ×3 (07:24→16:23)
[2018-11-07 08:15] VITALS: BP 154/80
[2018-11-07] MEDS: FAMOTIDINE/PF 20 MG/2 ML VIAL IV SCH (08:25)
[2018-11-07] MEDS: MEGESTROL 400 MG/10 ML UDCUP PO SCH (08:25)
[2018-11-07] MEDS: POTASSIUM CHLORIDE 10% ELIXIR 20 MEQ/15 ML UDCUP PO PRN ×3 (08:25→13:06)
[2018-11-07] MEDS: ENOXAPARIN SODIUM 30 MG/0.3 ML SQ SCH (08:26)
[2018-11-07] MEDS: DOCUSATE NA 100MG/10ML UDCUP PO SCH (08:35)
[2018-11-07] MEDS: CEFAZOLIN SODIUM 1 GM VIAL IVP SCH (08:35)
[2018-11-07] MEDS: HONEY 1 APPL/ML TUBE TP SCH (08:41)
[2018-11-07] MEDS: LEVOFLOXACIN 250 MG/D5W 50ML 50 ML IV SCH (09:32)
[2018-11-07 12:19] VITALS: BP 112/60
--- NOTE | 2018-11-07 15:31 | NUR ---
DISCHARGE MED REC FAXED TO [facility].
[2018-11-07 16:31] VITALS: BP 126/61
--- NOTE | 2018-11-07 16:39 | NUR ---
DISCHARGE TELEPHONE REPOT GIVEN TO BREA SORENSON LVN.
--- NOTE | 2018-11-07 16:52 | NUR ---
DISCHARGE [facility] CALLED TO REQUEST TRANSPORT TO [facility].
[2018-11-07 19:38] VITALS: BP 133/67
--- NOTE | 2018-11-07 20:58 | NUR ---
[facility] at bedside, report given. Pt stable, alert and no signs of distress noted, spouse at bedside. [facility] to [facility]
== END 2018-11-07 21:00 | DRG 871 ==
LOC: EDH 23:09 → EDHIP 10-30 01:06 → 2CH 10-30 17:32 → 2AH 11-02 02:31 → 2DH 11-04 00:15
PROVIDERS: ADMIT Internal Medicine; ATTEND Internal Medicine
PROC: 02HV33Z Insertion of Infusion Device into Superior Vena Cava, Percutaneous Approach (ICD-10-PCS; principal; 2018-10-30)
DX: A41.59 Other Gram-negative sepsis (principal); R65.21 Severe sepsis with septic shock; E11.10 Type 2 diabetes mellitus with ketoacidosis without coma; G92 Toxic encephalopathy; E44.0 Moderate protein-calorie malnutrition; I69.351 Hemiplegia and hemiparesis following cerebral infarction affecting right dominant side; N17.9 Acute kidney failure, unspecified; N39.0 Urinary tract infection, site not specified; E87.0 Hyperosmolality and hypernatremia; F05 Delirium due to known physiological condition; Z68.1 Body mass index [BMI] 19.9 or less, adult; N18.9 Chronic kidney disease, unspecified; D64.9 Anemia, unspecified; E03.9 Hypothyroidism, unspecified; E11.22 Type 2 diabetes mellitus with diabetic chronic kidney disease; E78.5 Hyperlipidemia, unspecified; E83.39 Other disorders of phosphorus metabolism; E86.0 Dehydration; E87.6 Hypokalemia; E87.8 Other disorders of electrolyte and fluid balance, not elsewhere classified; F03.90 Unspecified dementia, unspecified severity, without behavioral disturbance, psychotic disturbance, mood disturbance, and anxiety; G40.909 Epilepsy, unspecified, not intractable, without status epilepticus; I12.9 Hypertensive chronic kidney disease with stage 1 through stage 4 chronic kidney disease, or unspecified chronic kidney disease; I48.91 Unspecified atrial fibrillation; E11.21 Type 2 diabetes mellitus with diabetic nephropathy; K59.00 Constipation, unspecified; Z79.4 Long term (current) use of insulin; Z82.0 Family history of epilepsy and other diseases of the nervous system; Z82.3 Family history of stroke; Z82.49 Family history of ischemic heart disease and other diseases of the circulatory system; Z82.5 Family history of asthma and other chronic lower respiratory diseases; Z83.3 Family history of diabetes mellitus; Z89.519 Acquired absence of unspecified leg below knee
CPT/HCPCS: 36415; 36600; 70450; 71045; 76770; 80048; 80053; 80185; 81001; 82009; 82040; 82140; 82270; 82550; 82803; 82948; 83036; 83605; 83735; 83874; 83930; 84100; 84132; 84443; 84484; 85025; 85027; 85610; 85730; 86677; 87040; 87077; 87088; 87186; 92526; 92610; 93005; 97039; 99291; C1751; C1894; G0378; J0690; J1650; J1815; J1956; J2060; J2543; J2765; J3370; J3411; J3475; J3480; J3490; J7030; J7040; J7042; J7070; Q2009

== ENCOUNTER 2018-11-19 18:59 | Emergency (ER) | payer OTHER ==
[~2018-11-19 18:59] MED LIST changes: +FAMO20TA8 PO; +FERR-82 PO; +METO25TA6 PO; +OLAN2.5T29 PO; +PHEN99.5 PO
== END 2018-11-19 21:47 | disposition home or self-care (01) ==
LOC: EDH 18:59
DX: Z45.2 Encounter for adjustment and management of vascular access device (principal); I12.0 Hypertensive chronic kidney disease with stage 5 chronic kidney disease or end stage renal disease; E11.22 Type 2 diabetes mellitus with diabetic chronic kidney disease; N18.6 End stage renal disease; E78.00 Pure hypercholesterolemia, unspecified; Z79.899 Other long term (current) drug therapy
CPT/HCPCS: 71045; 99282